=== PATIENT | female | born 1990 | race African-American/Black ===

== ENCOUNTER 2023-01-04 14:50 | Emergency (ER) | payer MEDICAID ==
[~2023-01-04] VITALS: Ht 165.1 cm; Wt 74.0 kg
[2023-01-04] MEDS ORDERED: LEVETIRACETAM 1000MG PREMIX 100 ML IV ONE (15:30)
[2023-01-04] MEDS ORDERED: SODIUM CHLORIDE 0.9% 1,000 ML IV ONE (15:30)
[2023-01-04 16:32] LABS: CHLORIDE 109 mEq/L (98-107)
[2023-01-04 16:38] LABS: BASOPHILS % 0.4 % (0.0-2.0); EOSINOPHILS % 1.6 % (0.0-5.0); HEMATOCRIT. 36.9 % (36.0-48.0); HEMOGLOBIN. 11.9 g/dL (12.0-16.0); LYMPHOCYTES % 36.1 % (20.0-50.0); MEAN CORPUSCULAR HEMOGLOBIN 22.1 pg (28.0-32.0); MEAN CORPUSCULAR VOLUME 68.7 fL (81.0-99.0); MEAN PLATELET VOLUME 9.5 fl (7.4-10.4); MONOCYTES % 6.3 % (2.0-8.0); NEUTROPHILS % 55.6 % (40.0-76.0); PLATELET 201 x1000/uL (130-400); RED BLOOD CELL COUNT 5.37 mill/uL (4.2-5.4); RED CELL DISTRIBUTION WIDTH 14.3 % (11.6-14.6)
[2023-01-04] MEDS ORDERED: LEVETIRACETAM 500MG TABLET PO ONE (17:15)
[2023-01-04 17:50] VITALS: BP 136/86
[2023-01-04 17:57] LABS: PLATELET ESTIMATE NORMAL
== END 2023-01-04 17:51 | disposition home or self-care (01) ==
LOC: ER 14:50
DX: G40.909 Epilepsy, unspecified, not intractable, without status epilepticus (principal)
CPT/HCPCS: 36415; 80053; 85025; 99283; J1953; J7030